=== PATIENT | male | born 1940 | race Caucasian/White ===

== ENCOUNTER 2017-03-03 12:48 | Outpatient (CLI) | payer MEDICARE, BC ==
[2017-03-03 14:45] LABS: Hematocrit 50.3 % (42.0-52.0); White Blood Cell (WBC) Count 6.9 thou/uL (4.8-10.8)
[2017-03-03 14:52] LABS: PTT 34.8 SEC (22.9-36.1); Prothrombin Time 17.1 SEC (12.0-14.7)
[2017-03-03 15:00] LABS: Anion Gap 10 mmol/L (10-20); BUN (Urea Nitrogen) 24 mg/dL (8.4-25.7); Calc. Creatinine Clearance 0 mL/min (70-130); Calcium 9.2 mg/dL (7.8-10.44); Carbon Dioxide 29 mmol/L (23-31); Chloride 105 mmol/L (98-107); Estimated GFR-MDRD 67
== END 2017-03-03 12:49 | disposition home or self-care (01) ==
LOC: LABBT 12:48
PROVIDERS: ATTEND Internal Medicine Cardiovascular Disease
DX: Z01.818 Encounter for other preprocedural examination (principal); I48.92 Unspecified atrial flutter
CPT/HCPCS: 80048; 85027; 85610; 85730; 93005; 93010

== ENCOUNTER → 2017-03-06 | Day surgery (SDC) | payer MEDICARE, BC ==
[2017-03-03 13:06] VITALS: BMI 25.3
[~2017-03-06] MED LIST: DOPamine 400 MG/D5W 250 ML 250 ML ONE; Diprivan 40 ML ONE; Heparin 10,000 UNITS/1 ML VIAL ONE; Morphine Sulfate 2 MG/ML SYRINGE SLOW IVP PRN; Ondansetron HCl/PF 4 MG/2 ML Vial IVP PRN; PHENYLEPHRINE-NS 100 MCG/ML 10 ML SYRINGE ONE; Promethazine HCl 25 MG/ML VIAL SLOW IVP PRN; Propofol 200 MG/20 ML VIAL ONE; Propofol 500 MG/50 ML VIAL ONE
--- NOTE | 2017-03-06 11:03 | ECHO ---
PROCEDURE NOTE: Date: 03/06/17 PROCEDURE: Transesophageal echocardiogram. REASON FOR PROCEDURE: Mr. Olsen is a 76-year-old male with history of atrial flutter for unclear duration who has been on Xarelto for a limited amount of time. He is here for MIRIAN to rule out intracardiac clots in any of the cardiac structures. PROCEDURE IN DETAIL: The patient received deep sedation with propofol from an anesthesia specialist. After adequate level of sedation achieved, a standard transesophageal echocardiogram probe was passed into the esophagus without difficulty. Patient tolerated the procedure well. No complications. RESULTS: The patient was in atrial flutter at time of procedure: The left atrium is mildly enlarged at about 4.9 cm in horizontal diameter. Left atrium is visualized, contains no clot, from multiple angles. The peak left atrial velocity was about 40 cm per second. Four of four pulmonary veins were seen, less than 1 meter/second velocity. Mitral valve has trivial regurgitation. Left ventricular systolic function is preserved. Aortic valve has 3 leaflets without stenosis and only trace regurgitation seen. The interatrial septum and interventricular septum free of defects. Chambers nondilated. Trace tricuspid regurgitation and pulmonic regurgitation seen only. The visualized portion of the ascending and descending aortic was free of aneurysm or dissection, minimal adherent atheroma was seen. CONCLUSION: 1. No intracardiac clots on MIRIAN. 2. Normal left ventricular systolic function. 3. Insignificant valvular heart disease. 4. Mild left atrial enlargement. PLAN: Proceed with ablation procedure. VANNESSAD
--- NOTE | 2017-03-06 14:18 | OP ---
DATE OF PROCEDURE: 03/06/2017 ELECTROPHYSIOLOGY STUDY AND RADIOFREQUENCY ABLATION REPORT REFERRING PHYSICIAN: Florence Hastings M.D. REASON FOR PROCEDURE: Mr. Olsen is a 76-year-old man who presented with sustained atrial flutter. He is on anticoagulation for a short while, but MIRIAN today demonstrated only intracardiac clot, normal LV function. PROCEDURE: The patient received deep sedation by Anesthesia specialist. The right femoral area was prepped, draped and anesthetized using subcutaneous lidocaine. With ultrasound guidance, the right femoral vein was cannulated. Two 8 [place] short sheaths were introduced through which a Decapolar 7 [place] catheter was advanced to the right atrium, His bundle and right ventricular positions. Eventually to the CS pacing, mapping, and recording was performed in each location. Following that, typical atrial flutter was demonstrated by post-pacing intervals shortest by overdrive pacing and demonstrated at the proximal CS pacing. The atrial flutter cycle length was 245 milliseconds. The baseline HV was 67 milliseconds. Following that, a ThermoCool STSF catheter was advanced to the right atrium and full 3D map of the right atrium was obtained along the CS and cavotricuspid isthmus. Radiofrequency ablation with the help of this map was performed on the cavotricuspid isthmus with successfully terminating atrial flutter during the ablation. Following that, the proximal CS spacing maneuvers were performed and additional were delivered to ascertain complete isthmus block. It was demonstrated by progressive shortening transisthmus by going from lateral of the line to the lateral of the right atrium. Occasional nonsustained left atrial arrhythmias were seen. Full EP study was performed demonstrating sinus node recovery time of 1300 milliseconds about 700 milliseconds. The AV Wenckebach cycle length was 570 milliseconds, no VA conduction was demonstrated by RV pacing. The AV nestor ERP was 600/418 milliseconds. Following that, the pace maneuver was performed to attempt reinduction of atrial flutter on dopamine challenge and was not successful. Also additional RV OT mapping was performed to assess the origin of his intermittent monomorphic PVCs, but no early sites were found in the RVOT. CONCLUSION: 1. Typical atrial flutter present with cavotricuspid dependence. 2. Successful ablation of the cavotricuspid isthmus terminating atrial flutter and complete isthmus block is documented. 3. Occasional PVCs are seen which are right bundle inferior axis in morphology which is liklley not RVOT, but Aortic cusp or LVOT in origin. MTDD
--- NOTE | 2017-03-06 15:16 | EKG ---
Test Reason : POST EP/ABLATION Blood Pressure : / mmHG Vent. Rate : 077 BPM Atrial Rate : 077 BPM P-R Int : 248 ms QRS Dur : 090 ms QT Int : 408 ms P-R-T Axes : 067 -07 028 degrees QTc Int : 461 ms Sinus rhythm with 1st degree A-V block with occasional Premature ventricular complexes Inferior infarct , age undetermined cannot be excluded Abnormal ECG Confirmed by NAKIA MARTINEZ ([id number]) on 03/06/2017 3:16:02 PM Referred By: JOSE M Confirmed By:NAKIA MARTINEZ
== END ==
LOC: CCL 07:44
PROVIDERS: ATTEND Internal Medicine Cardiovascular Disease
DX: I48.3 Typical atrial flutter (principal); I10 Essential (primary) hypertension; E78.00 Pure hypercholesterolemia, unspecified; Z88.1 Allergy status to other antibiotic agents; Z79.01 Long term (current) use of anticoagulants; Z79.899 Other long term (current) drug therapy; Z98.890 Other specified postprocedural states; Z87.891 Personal history of nicotine dependence
CPT/HCPCS: 76942; 93005; 93312; 93613; 93623; 93653; C1730; C1769; J1265; J1644; J2704